=== PATIENT | female | born 1960 | race Caucasian/White ===

== ENCOUNTER → 2017-08-20 | Outpatient (CLI) | payer MEDICARE ==
[~2017-08-20] MED LIST: Aldactone100 MG PO; ERGO50000; ERGO50000 PO; FURO40 PO; HYDACE10B; HYDMOR2 PO; HYDR1TAB94 PO; NADO20; NADO20 PO; NADO40; NADO40 PO; OFLOXACIN PO; PANT40 PO; PROP10 PO; SPIR50 PO
== END | disposition home or self-care (01) ==
LOC: LAB 09:41 → LAB SHORT 09:41
PROVIDERS: Nurse Practitioner Women's Health
DX: Z12.4 Encounter for screening for malignant neoplasm of cervix (principal); Z91.89 Other specified personal risk factors, not elsewhere classified
CPT/HCPCS: 87624; G0123

== ENCOUNTER → 2018-08-18 | Outpatient (CLI) | payer MEDICARE ==
[2018-08-18 19:43] LABS: Alanine Aminotransfer (ALT/SGP 31 U/L (12-78); Albumin, Blood 3.3 g/dL (3.4-5.0); Alk Phos 64 U/L (50-136); Anion Gap 7 mmol/L (6-16); Aspartate Aminotrans (AST/SGOT 35 U/L (12-37); Blood Urea Nitrogen 8 mg/dL (8-24); Bun/Creatinine Ratio 14.5 (12.0-20.0); CO2, Blood 25 mmol/L (21-32); Calcium, Blood 8.7 mg/dL (8.5-10.1); Chloride, Blood 108 mmol/L (98-108); Creatinine, Blood 0.55 mg/dL (0.40-1.00); Free Thyroxine 0.96 ng/dL (0.70-1.60); Globulin, Blood 3.4 g/dL (2.2-4.0); Glomerular Filtration Rate >60 (60-); Glucose, Blood 71 mg/dL (70-99); Potassium, Blood 3.6 mmol/L (3.5-5.5); Sodium, Blood 140 mmol/L (136-145); Total Protein, Blood 6.7 g/dL (6.4-8.2)
== END | disposition home or self-care (01) ==
LOC: LAB SHORT 18:42 → LAB 18:42
PROVIDERS: Internal Medicine Hematology & Oncology
DX: C73 Malignant neoplasm of thyroid gland (principal)
CPT/HCPCS: 80053; 84439; 84443

== ENCOUNTER 2018-09-30 08:45 | Day surgery (SDC) | payer MEDICARE, SELFPAY ==
[~2018-09-30] VITALS: Ht 162.6 cm; Wt 66.3 kg
[~2018-09-30 08:45] MED LIST changes: -NADO40
--- NOTE | 2018-09-30 12:19 | NUR ---
09/30/18 1219 RichAllison Camelia LATE ENTRY FOR TODAY AT 1050 PATIENT CONTINUES TO HAVE ABDOMINAL PAIN WHICH SHE IS UNABLE TO RATE AT THIS TIME, DR. LISA AWARE, ORDERS RECEIVED FOR FENTANYL 25MCG IV IF PAIN DOES NOT BEGIN TO SUBSIDE. PATIENT HAS UMBILICAL HERNIA WHICH SHE HAS BEEN HAVING CONSTANT PROBLEMS WITH, PATIENT STATES THAT SHE IS UNABLE TO TELL IF PAIN IS FROM HERNIA OR ESOPHAGUS. VSS, DAUGHTER AT SIDE, WILL CONTINUE TO MONITOR. NOTE FOR 1057 FENTANYL 25MCG IV GIVEN FOR PAIN. VSS. WILL CONTINUE TO MONITOR. PATIENTS DAUGHTER AT SIDE. PATIENT CONTINUES TO CRY AND TRY TO FIND A COMFORTABLE POSITION. NOTE FOR 1105 PATIENT C/O NAUSEA, DR. LISA NOTIFIED, ORDERS RECEIVED FOR ZOFRAN 8MG IV. PATIENT STATES THAT PAIN IS BETTER. VS REMAIN STABLE. WILL CONTINUE TO MONITOR. NOTE FOR 1120 PATIENT STATES THAT NAUSEA IS BETTER, PAIN IS TOLERABLE. PATIENT IS TOLERATING PO FLUIDS. DAUGHT AT SIDE. VSS. PATIENT STATES THAT SHE IS ABLE TO GO HOME. IV DC'D AND DISCHARGE INSTRUCTIONS GIVE.
[2019-01-30] MEDS ORDERED: HARVONI 90-4001 EACH PO (14:19)
[2019-01-30] MEDS ORDERED: Ribavirin200 M1 PO (14:19)
[2019-02-01] MEDS ORDERED: OMEPRAZOLE20 MG PO (12:01)
[2019-02-01] MEDS ORDERED: Carafate1 GM/10 ML PO (12:01)
== END 2018-09-30 11:37 | disposition home or self-care (01) ==
LOC: ORSCSDS 08:45
PROVIDERS: Internal Medicine Gastroenterology
PROC: 06L38CZ Occlusion of Esophageal Vein with Extraluminal Device, Via Natural or Artificial Opening Endoscopic (ICD-10-PCS; principal; 2018-09-30 10:00)
DX: R10.9 Unspecified abdominal pain (principal); B19.20 Unspecified viral hepatitis C without hepatic coma; K74.60 Unspecified cirrhosis of liver; K76.6 Portal hypertension; K31.89 Other diseases of stomach and duodenum; I85.00 Esophageal varices without bleeding; Z79.899 Other long term (current) drug therapy; Z87.891 Personal history of nicotine dependence
CPT/HCPCS: J2405; J2704; J3010; J7120

== ENCOUNTER 2018-10-14 08:10 | Day surgery (SDC) | payer MEDICARE, SELFPAY ==
[~2018-10-14] VITALS: Ht 162.6 cm; Wt 67.6 kg
[2018-10-14] MEDS ORDERED: POTCHL20ER PO (08:50)
[2018-10-14] MEDS ORDERED: SUCR1 (08:52)
--- NOTE | 2018-10-14 09:11 | NUR ---
10/14/18 0911 Bibi Jimenez PT. GIVEN A WARM BLANKET. DAUGHTER AT HER SIDE. CALL LIGHT IS WITHIN REACH.
--- NOTE | 2018-10-14 10:58 | NUR ---
10/14/18 1058 Bibi Jimenez 1003 PT. C/O FEELING GAS IN HER ABD. PT. HOLDING HER RIGHT SIDE. PT. SITTING STRAIGHT UP IN BED WITH PILLOW BEHIND HER. PT. WANTED TO SIT RIGHT UP AFTER PROCEDURE IN ENDO ROOM. PT. VERBALIZES THE GAS IS BETTER THIS TIME. PT. ENC. TO BURP UP AIR OR PASS AIR IF NEEDED.
--- NOTE | 2018-10-14 15:16 | NUR ---
10/14/18 1516 Bibi Jimenez LATE ENTRY FOR 09 PT. AWAKE, MOANING, ASKING TO SIT UP IN BED. PT. VERBALIZES HAVING GAS & WANTING TO BURP BUT CAN'T AT THIS TIME. PT. INSTRUCTED THAT EVENTUALLY THE GAS WOULD ABSORB. DR. LISA AWARE. PT. ASSITTED WITH SITTING UP IN BED.
[2019-01-30] MEDS ORDERED: Ribavirin200 M1 PO (14:19)
[2019-01-30] MEDS ORDERED: HARVONI 90-4001 EACH PO (14:19)
[2019-02-01] MEDS ORDERED: Carafate1 GM/10 ML PO (12:01)
[2019-02-01] MEDS ORDERED: OMEPRAZOLE20 MG PO (12:01)
== END 2018-10-14 10:40 | disposition home or self-care (01) ==
LOC: ORSCSDS 08:10
PROVIDERS: Internal Medicine Gastroenterology
PROC: 06L38CZ Occlusion of Esophageal Vein with Extraluminal Device, Via Natural or Artificial Opening Endoscopic (ICD-10-PCS; principal; 2018-10-14 09:15)
DX: K70.30 Alcoholic cirrhosis of liver without ascites (principal); I85.00 Esophageal varices without bleeding; K76.6 Portal hypertension; K31.89 Other diseases of stomach and duodenum; B18.2 Chronic viral hepatitis C; Z87.19 Personal history of other diseases of the digestive system; Z79.899 Other long term (current) drug therapy; Z87.891 Personal history of nicotine dependence
CPT/HCPCS: J2704; J7120

== ENCOUNTER → 2018-12-15 | Outpatient (CLI) | payer MEDICARE, SELFPAY ==
[~2018-12-15] MED LIST changes: +Carafate1 GM/10 ML PO; +HARVONI 90-4001 EACH PO; +OMEPRAZOLE20 MG PO; +POTCHL20ER PO; +Ribavirin200 M1 PO; +SUCR1
== END | disposition home or self-care (01) ==
LOC: LAB SHORT 16:56 → LAB 16:56
PROVIDERS: Nurse Practitioner Women's Health
DX: Z12.4 Encounter for screening for malignant neoplasm of cervix (principal); N89.8 Other specified noninflammatory disorders of vagina; Z91.89 Other specified personal risk factors, not elsewhere classified
CPT/HCPCS: 87070; 87077; 87186; 87205; 87624; G0123

== ENCOUNTER → 2019-01-23 | Outpatient (CLI) | payer MEDICARE, SELFPAY ==
[2019-01-25 12:27] LABS: Adenovirus F 40/41 Not Detected (NOT DETECT); Astrovirus Not Detected (NOT DETECT); Campylobacter Sp Not Detected (NOT DETECT); Cryptosporidium Not Detected (NOT DETECT); Cyclospora Cayetanensis Not Detected (NOT DETECT); E. Coli O157 Not Detected (NOT DETECT); Entamoeba Histolytica Not Detected (NOT DETECT); Enteroaggregative E. coli-EAEC Not Detected (NOT DETECT); Enteropathogenic E. coli-EPEC Not Detected (NOT DETECT); Enterotoxigenic E. coli-ETEC Not Detected (NOT DETECT); Giardia Lamblia Not Detected (NOT DETECT); Norovirus GI/GII Not Detected (NOT DETECT); Plesiomonas Shigelloides Not Detected (NOT DETECT); Rotavirus A Not Detected (NOT DETECT); Salmonella Sp Not Detected (NOT DETECT); Sapovirus Not Detected (NOT DETECT); Shiga Toxin-prod E. coli-STEC Not Detected (NOT DETECT); Shigella/Enteroin E. coli-EIEC Not Detected (NOT DETECT); Vibrio Cholerae Not Detected (NOT DETECT); Vibrio Sp Not Detected (NOT DETECT); Yersinia Enterocolitica Not Detected (NOT DETECT)
== END | disposition home or self-care (01) ==
LOC: LAB SHORT 15:10 → LAB 15:10
PROVIDERS: Internal Medicine Gastroenterology
DX: R19.7 Diarrhea, unspecified (principal)
CPT/HCPCS: 0097U

== ENCOUNTER 2020-01-08 15:22 | Emergency (ER) | payer MEDICARE ==
[~2020-01-08] VITALS: Ht 162.6 cm; Wt 70.3 kg
[2020-01-08] MEDS ORDERED: AZIT250 PO (16:18)
== END 2020-01-08 16:30 | disposition home or self-care (01) ==
LOC: ER 15:22
DX: S09.22XA Traumatic rupture of left ear drum, initial encounter (principal); H66.92 Otitis media, unspecified, left ear; Z88.0 Allergy status to penicillin; Z88.5 Allergy status to narcotic agent; Z91.018 Allergy to other foods; Z79.899 Other long term (current) drug therapy; Z87.891 Personal history of nicotine dependence; W22.8XXA Striking against or struck by other objects, initial encounter; Y93.E8 Activity, other personal hygiene
CPT/HCPCS: 99282

== ENCOUNTER 2020-01-11 09:06 | Day surgery (SDC) | payer MEDICARE ==
[~2020-01-11 09:06] MED LIST changes: +AZIT250 PO
== END 2020-01-11 22:37 | disposition home or self-care (01) ==
LOC: US 09:06
DX: C73 Malignant neoplasm of thyroid gland (principal)
CPT/HCPCS: 38505; 60100; 76942; 88305

== ENCOUNTER 2020-04-03 09:52 | Day surgery (SDC) | payer MEDICARE ==
[~2020-04-03] VITALS: Ht 162.6 cm; Wt 74.6 kg
[~2020-04-03 09:52] MED LIST changes: +FAMO40 PO
--- NOTE | 2020-04-03 12:58 | NUR ---
04/03/[address] INFORMED THAT PT HAS ALLERGY TO CODEINE, DR LISA TALKS TO PATIENT ABOUT IT AND THEY AGREE THAT RX FOR TYLENOL #3 WILL BE FINE. RX GIVEN TO PT.
== END 2020-04-03 13:07 | disposition home or self-care (01) ==
LOC: ORSCSDS 09:52
PROVIDERS: Internal Medicine Gastroenterology
PROC: 0DJ08ZZ Inspection of Upper Intestinal Tract, Via Natural or Artificial Opening Endoscopic (ICD-10-PCS; principal; 2020-04-03 11:00)
DX: K74.60 Unspecified cirrhosis of liver (principal); Z13.810 Encounter for screening for upper gastrointestinal disorder; I85.00 Esophageal varices without bleeding; K76.6 Portal hypertension; K31.89 Other diseases of stomach and duodenum; Z86.19 Personal history of other infectious and parasitic diseases; Z87.891 Personal history of nicotine dependence; Z79.899 Other long term (current) drug therapy
CPT/HCPCS: J2405; J2704; J3010; J7120

== ENCOUNTER 2020-05-10 09:22 | Day surgery (SDC) | payer MEDICARE, SELFPAY ==
[~2020-05-10] VITALS: Ht 162.6 cm; Wt 78.4 kg
[2020-05-10] MEDS ORDERED: EUTHYROX125 MCG PO (09:39)
== END 2020-05-10 10:45 | disposition home or self-care (01) ==
LOC: ORSCSDS 09:22
PROVIDERS: Internal Medicine Gastroenterology
PROC: 06L38CZ Occlusion of Esophageal Vein with Extraluminal Device, Via Natural or Artificial Opening Endoscopic (ICD-10-PCS; principal; 2020-05-10 10:30)
DX: K74.60 Unspecified cirrhosis of liver (principal); I85.00 Esophageal varices without bleeding; K76.6 Portal hypertension; D50.0 Iron deficiency anemia secondary to blood loss (chronic); K31.89 Other diseases of stomach and duodenum; F41.8 Other specified anxiety disorders; K44.9 Diaphragmatic hernia without obstruction or gangrene; Z86.19 Personal history of other infectious and parasitic diseases; Z79.899 Other long term (current) drug therapy
CPT/HCPCS: J2405; J2704; J7120